=== PATIENT | female | born 1990 | race Caucasian/White ===

== ENCOUNTER → 2022-02-13 | Outpatient (CLI) | payer MEDICARE, MEDICAID ==
--- NOTE | 2022-02-13 17:50 | DIREP ---
PROCEDURE:NM GALLBLADDER SCAN/CLARK COMPARISON:None. INDICATIONS:RUQ PAIN TECHNIQUE:After obtaining the patient's consent, radiopharmaceutical was injected and images obtained sequentially for one hour. PHARMACEUTICAL(S):A 0.3 mCi Tc-99m ROMMEL derivative. 8 oz fatty meal FINDINGS: LIVER:Normal. BILIARY DUCTS:Normal. Visualized at 5 minutes. GALLBLADDER:Normal. Visualized at 15 minutes INTESTINE:Normal. Visualized at 20 minutes EJECTION FRACTION:92% Administration of fatty meal resulted in no symptoms CONCLUSION:Hyperkinetic gallbladder ejection fraction Dictated by: Wiliam Moy DO on 02/13/2022 at 05:16 PM
== END | disposition home or self-care (01) ==
LOC: RAD 13:42
PROVIDERS: ATTEND Family Medicine
DX: R10.11 Right upper quadrant pain (principal)
CPT/HCPCS: 78227; A9537